=== PATIENT | female | born 1985 | race American Indian/Alaskan Native ===

== ENCOUNTER 2017-01-19 15:10 | Emergency (ER) | payer MEDICAID ==
[2017-01-19 15:58] LABS: Basophils % (Auto) 0.6 % (0.0-1.8); Eosinophils % (Auto) 1.3 % (0.0-4.3); Hematocrit 35.9 % (30.3-42.9); Hemoglobin 11.7 gm/dl (10.1-14.3); Mean Corpuscular HGB Conc 33 % (30-34); Mean Corpuscular Hemoglobin 28 pg (28-32); Mean Corpuscular Volume 86 fl (79-97); Platelet Count 233 K/mm3 (140-440); Red Blood Count 4.19 M/mm3 (3.65-5.03); Red Cell Distribution Width 14.5 % (13.2-15.2); White Blood Count 7.6 K/mm3 (4.5-11.0)
[2017-01-19 16:13] LABS: Alanine Aminotransferase 8 units/L (7-56); Albumin 3.9 g/dL (3.9-5); Albumin/Globulin Ratio 1.2 %; Alkaline Phosphatase 51 units/L (35-129); Anion Gap 19 mmol/L; BUN/Creatinine Ratio 13; Bilirubin,Total < 0.20 mg/dL (0.1-1.2); Blood Urea Nitrogen 8 mg/dL (7-17); Calcium 9.1 mg/dL (8.4-10.2); Carbon Dioxide 23 mmol/L (22-30); Glucose 87 mg/dL (65-100); Sodium 139 mmol/L (137-145); Total Protein 7.1 g/dL (6.3-8.2)
[2017-01-19 16:44] LABS: Bacteria,Urine 1+ /HPF (Negative); Bilirubin,Urine NEG (Negative); Blood,Urine NEG (Negative); Ketones,Urine NEG (Negative); Leukocyte Esterase,Urine LG (Negative); Mucus,Urine FEW /HPF; Nitrite,Urine NEG (Negative); Protein,Urine <15 mg/dL mg/dL (Negative); Urobilinogen,Urine < 2.0 mg/dL (<2.0)
--- NOTE | 2017-01-19 19:16 | Ultrasound Report ---
FINAL REPORT EXAM: US OB > = 14 WEEKS FETUS HISTORY: cramping and cramping TECHNIQUE: Limited obstetrical ultrasound PRIORS: None. FINDINGS: LMP: 09/15/2016 clinical Age: 18 w 0 d US Age (average) = 17 w 2D EFW (BPD,HC,AC,FL) = 186g +/-28 g (0 lb 7 oz +/-1 oz) LMP EDC 06/22/2017 US EDC 06/27/2017 CI 79.7 (range 74 to 83) HC/AC 1.21 (range 1.07 to 1.29) FL/BPD 66.5 FL/HC. 18.4 (range 13.6 to. 20.2) FL/AC 22.2 BPD 3.7 cm corresponding to estimated age 17 weeks 3 days HC 13.5 cm corresponding to estimated age 17 weeks 0 days AC 11.2 cm corresponding to estimated age 17 weeks 0 days FL 2.5 cm corresponding to estimated age 17 weeks 3 days Presentation: Breech Activity: Monitored Placental location: Anterior Placental grade: 0 Cardiac motion: 152 BPM using M-mode doppler Amniotic Fluid Volume: Adequate Cervical Length: 3.3 cm IMPRESSION: Single intrauterine viable with an approximate age of 17 weeks 2 days.
--- NOTE | 2017-01-20 01:22 | Emergency Department Report ---
ED HPI - General Chief complaint: OB/Uterine Contractions Stated complaint: PREG, BACK AND ABDOMINAL ,ITCHING Time Seen by Provider: 01/19/17 22:45 Source: patient Mode of arrival: Ambulatory Limitations: No Limitations - History of Present Illness Initial comments: 31YO FEMALE 18 WEEKS WITH LOWER BACK PAIN AND ABDOMINAL PAIN. SHE C/O SEVERE VAGINAL ITCHING WHICH SHE HAS HAD FOR 5 DAYS. LAST SEXUAL ACTIVITY 2 WEEKS AGO. MD Complaint: abdominal pain -: Gradual Location: abdomen Severity scale (0 -10): 4 Quality: cramping Consistency: constant Improves with: rest Worsens with: movement Associated symptoms: denies other symptoms Vaginal bleeding: none :: Yes Number of weeks : 18 OB History - Previous Pregnancies: no complications Pre- care: followed by OB - Related Data Previous Rx's Medication Instructions Recorded Last Taken Type Fluconazole [Diflucan TAB] 200 mg PO QDAY #1 tablet 01/20/17 Unknown Rx Allergies Allergy/AdvReac Type Severity Reaction Status Date / Time No Known Allergies Allergy Verified 01/19/17 15:18 ED Review of Systems ROS: Stated complaint: PREG, BACK AND ABDOMINAL ,ITCHING Other details as noted in HPI Constitutional: denies: chills, fever Eyes: denies: eye pain, eye discharge, vision change ENT: denies: ear pain, throat pain Respiratory: denies: cough, shortness of breath, wheezing Cardiovascular: denies: chest pain, palpitations Endocrine: no symptoms reported Gastrointestinal: denies: abdominal pain, nausea, vomiting, diarrhea Genitourinary: denies: urgency, dysuria, discharge Musculoskeletal: back pain. denies: joint swelling, arthralgia Skin: denies: rash, lesions Neurological: denies: headache, weakness, paresthesias Psychiatric: denies: anxiety, depression Hematological/Lymphatic: denies: easy bleeding, easy bruising ED Past Medical Hx - Past Medical History Previous Medical History?: Yes Additional medical history: Gestational diabetes and induced hypertension - Surgical History Past Surgical History?: Yes Additional Surgical History: Rt knee surgery; ACL reconstruction - Social History Smoking Status: Never Smoker Substance Use Type: None - Medications Home Medications: Home Medications Medication Instructions Recorded Confirmed Last Taken Type Fluconazole [Diflucan TAB] 200 mg PO QDAY #1 tablet 01/20/17 Unknown Rx ED Physical Exam - General Limitations: No Limitations General appearance: alert, in no apparent distress - Head Head exam: Present: atraumatic, normocephalic - Eye Eye exam: Present: normal appearance, EOMI - ENT ENT exam: Present: mucous membranes moist - Neck Neck exam: Present: normal inspection - Respiratory Respiratory exam: Present: normal lung sounds bilaterally. Absent: respiratory distress - Cardiovascular Cardiovascular Exam: Present: regular rate, normal rhythm. Absent: systolic murmur, diastolic murmur, rubs, gallop - GI/Abdominal GI/Abdominal exam: Present: soft, normal bowel sounds - Extremities Exam Extremities exam: Present: normal inspection - Back Exam Back exam: Present: normal inspection, full ROM, tenderness (ACROSS LUMBAR ) - Neurological Exam Neurological exam: Present: alert, oriented X3, CN II-XII intact - Psychiatric Psychiatric exam: Present: normal affect, normal mood - Skin Skin exam: Present: warm, dry, intact, normal color. Absent: rash ED Course Vital Signs 01/19/17 01/19/17 01/20/17 15:19 19:44 01:08 Temperature 97.9 F 98.4 F 98.7 F Pulse Rate 91 H 84 76 Respiratory 18 18 18 Rate Blood Pressure 114/72 120/82 Blood Pressure 111/67 [Left] O2 Sat by Pulse 99 98 100 Oximetry 01/20/17 01:11 Temperature Pulse Rate Respiratory 18 Rate Blood Pressure Blood Pressure [Left] O2 Sat by Pulse 100 Oximetry ED Medical Decision Making - Lab Data Result diagrams: 01/19/17 15:28 01/19/17 15:28 Critical care attestation.: If time is entered above; I have spent that time in minutes in the direct care of this critically ill patient, excluding procedure time. ED Disposition Clinical Impression: Broad ligament pain UTI (urinary tract infection) Qualifiers: Urinary tract infection type: acute cystitis Hematuria presence: without hematuria Qualified Code(s): N30.00 - Acute cystitis without hematuria Disposition: DC-01 TO HOME OR SELFCARE Is pt being admited?: No Does the pt Need Aspirin: No Condition: Stable Instructions: Urinary Tract Infection in Women (ED), Abdominal Pain in (ED), Vulvovaginal Candidiasis (ED) Additional Instructions: PLEASE CHECK IN MEDICAL RECORDS IN 4-5 DAYS FOR THE GONORRHEA AND CHLAMYDIA RESULTS. RETURN TO THE ER FOR ANY CONCERNS Prescriptions: Fluconazole [Diflucan TAB] 200 mg PO QDAY #1 tablet Referrals: PRIMARY CARE, [Primary Care Provider] - 3-5 Days Time of Disposition: 02:31
[2017-01-20 02:50] VITALS: BP 120/58
== END 2017-01-20 02:52 | disposition home or self-care (01) ==
LOC: ED 15:10
DX: O23.42 Unspecified infection of urinary tract in pregnancy, second trimester (principal); M54.5 Low back pain; Z3A.18 18 weeks gestation of pregnancy
CPT/HCPCS: 36415; 76805; 80053; 81001; 84702; 85025; 87210; 87591

== ENCOUNTER 2017-02-02 12:02 | Outpatient (CLI) | payer MEDICAID ==
[2017-02-02 13:03] VITALS: BP 111/54
[2017-02-02] MEDS ORDERED: LACTATED RINGERS 500 ML IV ONE (14:32)
== END 2017-02-02 14:47 | disposition home or self-care (01) ==
LOC: TRG 12:02
PROVIDERS: ATTEND Obstetrics & Gynecology
DX: O47.02 False labor before 37 completed weeks of gestation, second trimester (principal); Z3A.20 20 weeks gestation of pregnancy

== ENCOUNTER 2017-03-03 12:35 | Outpatient (CLI) | payer MEDICAID ==
[2017-03-03 12:52] VITALS: BP 118/67
[2017-03-03] MEDS ORDERED: LACTATED RINGERS 500 ML IV ONE (14:10)
--- NOTE | 2017-03-03 15:03 | Ultrasound Report ---
FINAL REPORT EXAM: US OB > = 14 WEEKS FETUS HISTORY: IUP at 24 wks, concern for rupture of membranes TECHNIQUE: Ultrasound evaluation of the gravid uterus PRIORS: 01/19/2017 FINDINGS: There is a single viable intrauterine with documented cardiac activity. Multiple ultrasound measurements are made to determine a composite gestational age. ratios are within normal limits. There is no evidence of placenta previa or abruption. The maternal cervix is closed. The quantity of visualized amniotic fluid appears grossly normal. No sonographic abnormality in the visualized portion of the anatomy. Heart rate: 156 beats per minute position: Breech Placental position: Anterior Maternal cervix length: 3.4cm Amniotic fluid index: 9.3cm Estimated weight: 669 g Growth percentile by ultrasound: 43 Ultrasound estimated gestational age: 24 weeks 0 days Ultrasound estimated delivery date: 06/23/2017 LMP estimated gestational age: 24 weeks 1 day 8 LMP estimated delivery date: 06/22/2017 IMPRESSION: Single viable intrauterine with the above parameters Amniotic fluid index within normal limits Breech presentation
== END 2017-03-03 15:00 | disposition home or self-care (01) ==
LOC: TRG 12:35
PROVIDERS: ATTEND Obstetrics & Gynecology
DX: O32.1XX0 Maternal care for breech presentation, not applicable or unspecified (principal); O47.02 False labor before 37 completed weeks of gestation, second trimester; Z3A.24 24 weeks gestation of pregnancy
CPT/HCPCS: 36415; 76805; 82731

== ENCOUNTER 2020-01-03 17:00 | Emergency (ER) | payer BC, OTHER ==
[2020-01-03 17:15] VITALS: BP 148/89
--- NOTE | 2020-01-03 17:32 | Emergency Department Report ---
Chief Complaint: Upper Respiratory Infection Stated Complaint: HEADACHE/DIFFICULTY BREATHING Time Seen by Provider: 01/03/20 17:29 - HPI History of Present Illness: Patient is a 34-year-old female presents emergency room with complaints of fatigue that began yesterday. She has associated diarrhea, postnasal drip, cough, nausea, generalized body aches. She states that occasionally she feels shortness of breath after frequent coughing but otherwise is not short of br eath. She denies any fever, vomiting, chest pain, abdominal pain. She is able to tolerate p.o. intake without difficulty. She denies any past medical history. No allergies to medications. She states her last menstrual cycle was 3 weeks ago and uses a NuvaRing as control. 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 Vitals are stable On exam: Non toxic appearing, no acute distress atraumatic, normocephalic normal appearance of the eyes, PERRL, EOMI, no periorbital edema or ecchymosis moist mucus membranes, normal oropharynx, normal TMs and canals bilaterally regular heart rate and rhythm, no gallops, no rubs, no murmurs breath sounds are clear bilaterally, no w/r/r, no stridor, no respiratory distr ess, no accessory muscle use A&O x4, no focal neuro deficit skin is warm, dry, intact Symptoms appear most consistent with viral syndrome Her vitals are stable, she has no fever, no hypoxia, no tachycardia No abnormality on physical examination as documented in chart Patient has had a contact with a COVID-19 positive person Discussed the possibility of COVID-19 with patient, discussed strict return precautions, discussed outpatient testing, discussed self quarantine advised pt Please increase your fluid intake over the next several days. May take Tylenol as needed for fever or body aches. May take [id number] cold symptom relief medication such as Mucinex or TheraFlu. Follow-up with a primary care doctor for reexamination. Return to emergency room immediately for any new or worsening symptoms including but not limited to difficulty breathing, shortness of breath, severe chest pain, unable to tolerate by mouth intake, etc. Please self quarantine for 10 days from the onset of your symptoms. Please do not go out in public. If you are around others at home please wear a mask. If you need to cough or sneeze please do so in a napkin and immediately throw it away and immediately wash your hands. Wash your hands frequently. Wipe everything down. Recommend for you to get COVID-19 testing, may have this done at primary care doctor, health department, [employer] thru testing centers. Medical screening examination performed and there is no threat to life or limb at this time - Exam Vital Signs: Vital Signs 01/03/20 17:09 Temperature 98.7 F Pulse Rate 99 H Respiratory 18 Rate Blood Pressure 148/89 O2 Sat by Pulse 99 Oximetry MSE screening note: Focused history and physical exam performed. ED Disposition for MSE Clinical Impression: Viral URI with cough, Exposure to COVID-19 virus Disposition: MED SCREENING EXAM-LEFT Is pt being admited?: No Does the pt Need Aspirin: No Condition: Stable Instructions: COVID-19, COVID-19: How to Protect Yourself and Others - CDC, Viral Respiratory Infection, Prevent the Spread of COVID-19 if You Are Sick - [facility] Additional Instructions: Please increase your fluid intake over the next several days. May take Tylenol as needed for fever or body aches. May take [id number]-wvxyjcr cold symptom relief medication such as Mucinex or TheraFlu. Follow-up with a primary care doctor for reexamination. Return to emergency room immediately for any new or worsening symptoms including but not limited to difficulty breathing, shortness of breath, severe chest pain, unable to tolerate by mouth intake, etc. Please self quarantine for 10 days from the onset of your symptoms. Please do not go out in public. If you are around others at home please wear a mask. If you need to cough or sneeze please do so in a napkin and immediately throw it away and immediately wash your hands. Wash your hands frequently. Wipe everything down. Recommend for you to get COVID-19 testing, may have this done at primary care doctor, health department, [employer] thru testing centers. Referrals: your, primary care doctor [Other] - 2-3 Days Forms: Work/School Release Form(ED) Time of Disposition: 17:31 Print Language: TURKMEN
== END 2020-01-03 17:42 | disposition left against medical advice (07) ==
LOC: ED 17:00
DX: J06.9 Acute upper respiratory infection, unspecified (principal); Z20.828 Contact with and (suspected) exposure to other viral communicable diseases; Z53.21 Procedure and treatment not carried out due to patient leaving prior to being seen by health care provider

== ENCOUNTER 2020-01-13 12:16 | Outpatient (CLI) | payer BC ==
[2020-01-13 13:22] LABS: Chol/HDL Ratio 2.55 %
== END 2020-01-13 12:17 | disposition home or self-care (01) ==
LOC: LAB 12:16
PROVIDERS: ATTEND Internal Medicine
DX: E78.5 Hyperlipidemia, unspecified (principal); E55.9 Vitamin D deficiency, unspecified
CPT/HCPCS: 36415; 80061; 82306; 82607

== ENCOUNTER 2020-01-30 11:13 | Emergency (ER) | payer BC ==
[2020-01-30 12:22] LABS: Basophils # (Auto) 0.1 K/mm3 (0.0-0.1); Basophils % (Auto) 0.5 % (0.0-1.8); Eosinophils # (Auto) 0.1 K/mm3 (0.0-0.4); Eosinophils % (Auto) 0.5 % (0.0-4.3); Hematocrit 39.9 % (30.3-42.9); Hemoglobin 13.1 gm/dl (10.1-14.3); Lymphocytes # (Auto) 1.7 K/mm3 (1.2-5.4); Lymphocytes % (Auto) 14.6 % (13.4-35.0); Mean Corpuscular HGB Conc 33 % (30-34); Mean Corpuscular Volume 86 fl (79-97); Monocytes # (Auto) 0.7 K/mm3 (0.0-0.8); Monocytes % (Auto) 5.8 % (0.0-7.3); Platelet Count 256 K/mm3 (140-440); Red Blood Count 4.65 M/mm3 (3.65-5.03); Red Cell Distribution Width 14.5 % (13.2-15.2)
[2020-01-30 12:45] LABS: Alanine Aminotransferase 19 units/L (7-56); Albumin 4.2 g/dL (3.9-5); Blood Urea Nitrogen 9 mg/dL (7-17); Calcium 9.5 mg/dL (8.4-10.2); Hemolysis Index 17
[2020-01-30 12:48] LABS: BUN/Creatinine Ratio 13; Bilirubin,Direct < 0.2 mg/dL (0-0.2)
[2020-01-30 12:49] LABS: Bilirubin,Urine NEG (Negative); Blood,Urine NEG (Negative); Color,Urine Yellow (Yellow); Protein,Urine <15 mg/dL mg/dL (Negative); Urobilinogen,Urine < 2.0 mg/dL (<2.0)
[2020-01-30] MEDS ORDERED: KETOROLAC 60 MG/2 ML INJ IM STA (15:09)
--- NOTE | 2020-01-30 16:26 | Cat Scan Report ---
CT ABDOMEN AND PELVIS WITH CONTRAST INDICATION / CLINICAL INFORMATION: Lower abdominal pain. TECHNIQUE: Axial CT images were obtained through the abdomen and pelvis after 100 cc Omnipaque [address] scans at this location are performed using CT dose reduction for ALARA by means of automated exposure control. COMPARISON: None available. FINDINGS: LOWER CHEST: No significant abnormality. LIVER: No significant abnormality. GALLBLADDER: No significant abnormality. BILE DUCTS: No significant abnormality. PANCREAS: No significant abnormality. SPLEEN: No significant abnormality. ADRENALS: No significant abnormality. RIGHT KIDNEY / URETER: No significant abnormality. LEFT KIDNEY / URETER: No significant abnormality. STOMACH / SMALL BOWEL: No significant abnormality. COLON: Mild diverticulosis is noted along the sigmoid colon with mild wall thickening and surrounding inflammation. No other significant abnormality. APPENDIX: Surgically absent. PERITONEUM: No free fluid. No free air. No fluid collection. LYMPH NODES: No significant adenopathy. AORTA / ARTERIES: No significant abnormality. IVC / VEINS: No significant abnormality. URINARY BLADDER: No significant abnormality. REPRODUCTIVE ORGANS: The right ovary is enlarged and contains low attenuation lesions measuring up to 2.9 x 1.9 cm. No other significant abnormality. ADDITIONAL FINDINGS: None. SKELETAL SYSTEM: No significant abnormality. IMPRESSION: 1. Uncomplicated acute sigmoid diverticulitis. 2. Nonspecific enlargement of the right ovary with nonspecific areas of internal low attenuation that may represent cysts/follicles. Please correlate with the clinical findings. If there is continued cl inical concern, a pelvic ultrasound may be helpful for further evaluation. Signer Name: Alan Pablo MD Signed: 01/30/2020 4:22 PM Workstation Name: [id number]
--- NOTE | 2020-01-30 16:42 | Emergency Department Report ---
ED Abdominal Pain HPI - General Chief Complaint: Abdominal Pain Stated Complaint: ABDOMINAL PAIN Time Seen by Provider: 01/30/20 14:51 Source: patient Mode of arrival: Ambulatory Limitations: No Limitations - History of Present Illness MD Complaint: abdominal pain Location: suprapubic Radiation: none Migration to: no migration Severity: mild, moderate Severity scale (0 -10): 8 Quality: aching, dull Consistency: constant Improves With: nothing Worsens With: nothing Associated Symptoms: denies: vomiting, diarrhea, constipation, hematochezia, hematuria, anorexia, syncope - Related Data Previous Rx's Medication Instructions Recorded Last Taken Type Fluconazole [Diflucan TAB] 200 mg PO QDAY #1 tablet 01/20/17 Unknown Rx Ciprofloxacin HCl [Ciprofloxacin 500 mg PO Q12HR #28 tab 01/30/20 Unknown Rx TAB] Hyoscyamine Subl [Levsin Sl 0.125 0.125 mg SL Q6HR PRN #20 tab 01/30/20 Unknown Rx TAB] Ketorolac [Toradol] 10 mg PO Q6H PRN #15 tablet 01/30/20 Unknown Rx metroNIDAZOLE [Flagyl] 500 mg PO Q12HR #28 tab 01/30/20 Unknown Rx Allergies Allergy/AdvReac Type Severity Reaction Status Date / Time No Known Allergies Allergy Verified 01/19/17 15:18 ED Review of Systems ROS: Stated complaint: ABDOMINAL PAIN Other details as noted in HPI Comment: All other systems reviewed and negative ED Past Medical Hx - Past Medical History Previous Medical History?: No Hx Hypertension: No Hx Diabetes: No Hx Deep Vein Thrombosis: No Hx Renal Disease: No Hx Sickle Cell Disease: No Hx Seizures: No Hx Asthma: No Hx HIV: No Additional medical history: Gestational diabetes and induced hypertension - Surgical History Past Surgical History?: Yes Additional Surgical History: Rt knee surgery; ACL reconstruction - Social History Smoking Status: Never Smoker Substance Use Type: None - Medications Home Medications: Home Medications Medication Instructions Recorded Confirmed Last Taken Type Fluconazole [Diflucan TAB] 200 mg PO QDAY #1 tablet 01/20/17 Unknown Rx Ciprofloxacin HCl [Ciprofloxacin 500 mg PO Q12HR #28 tab 01/30/20 Unknown Rx TAB] Hyoscyamine Subl [Levsin Sl 0.125 0.125 mg SL Q6HR PRN #20 tab 01/30/20 Unknown Rx TAB] Ketorolac [Toradol] 10 mg PO Q6H PRN #15 tablet 01/30/20 Unknown Rx metroNIDAZOLE [Flagyl] 500 mg PO Q12HR #28 tab 01/30/20 Unknown Rx ED Physical Exam - General Limitations: No Limitations General appearance: alert, in no apparent distress - Head Head exam: Present: atraumatic, normocephalic, normal inspection - Eye Eye exam: Present: normal appearance, PERRL. Absent: scleral icterus, conjunctival injection, periorbital swelling, periorbital tenderness Pupils: Present: normal accommodation - ENT ENT exam: Present: normal exam, normal orophraynx, mucous membranes moist, TM's normal bilaterally - Neck Neck exam: Present: normal inspection, full ROM - Respiratory Respiratory exam: Present: normal lung sounds bilaterally. Absent: respiratory distress, wheezes, rhonchi, chest wall tenderness, accessory muscle use, decreased breath sounds - Cardiovascular Cardiovascular Exam: Present: regular rate, normal rhythm. Absent: systolic murmur, diastolic murmur, rubs, gallop - GI/Abdominal GI/Abdominal exam: Present: soft, tenderness, normal bowel sounds. Absent: distended, guarding, hyperactive bowel sounds, hypoactive bowel sounds, organomegaly - Extremities Exam Extremities exam: Present: normal inspection, normal capillary refill - Back Exam Back exam: Present: normal inspection. Absent: CVA tenderness (R), CVA tenderness (L) - Neurological Exam Neurological exam: Present: alert, oriented X3, CN II-XII intact - Psychiatric Psychiatric exam: Present: normal affect, normal mood - Skin Skin exam: Present: warm, dry, intact, normal color. Absent: rash ED Course Vital Signs 01/30/20 01/30/20 11:37 15:18 Temperature 98.4 F Pulse Rate 97 H Respiratory 16 18 Rate Blood Pressure 127/92 O2 Sat by Pulse 100 Oximetry ED Medical Decision Making - Lab Data Result diagrams: 01/30/20 12:01 01/30/20 12:04 Critical care attestation.: If time is entered above; I have spent that time in minutes in the direct care of this critically ill patient, excluding procedure time. ED Disposition Clinical Impression: Diverticulitis, Ovarian cyst Disposition: - TO HOME OR SELFCARE Is pt being admited?: No Does the pt Need Aspirin: No Condition: Stable Instructions: Abdominal Pain (ED), Diverticulitis, Ovarian Cystectomy, Care After, Ovarian Cyst, [id number] Prescriptions: Ciprofloxacin HCl [Ciprofloxacin TAB] 500 mg PO Q12HR #28 tab metroNIDAZOLE [Flagyl] 500 mg PO Q12HR #28 tab Hyoscyamine Subl [Levsin Sl 0.125 TAB] 0.125 mg SL Q6HR PRN #20 tab PRN Reason: abdominal cramps and spasms Ketorolac [Toradol] 10 mg PO Q6H PRN #15 tablet PRN Reason: Pain Referrals: [facility] [Provider Group] - 3-5 Days PRIMARY CARE,MD [Primary Care Provider] - 3-5 Days [facility] [Provider Group] - 3-5 Days
[2020-01-30 17:28] VITALS: BP 138/80
== END 2020-01-30 17:27 | disposition home or self-care (01) ==
LOC: ED 11:13
DX: K57.92 Diverticulitis of intestine, part unspecified, without perforation or abscess without bleeding (principal); N83.209 Unspecified ovarian cyst, unspecified side; Z98.890 Other specified postprocedural states; Z79.899 Other long term (current) drug therapy
CPT/HCPCS: 36415; 74177; 80048; 80076; 81001; 84703; 85025; 96372; 99284; J1885; Q9967

== ENCOUNTER 2020-04-06 06:01 | Day surgery (SDC) | payer BC ==
[~2020-04-06 06:01] MED LIST: SODIUM CHLORIDE 0.9% 1000 ML 1,000 ML IV SCH
--- NOTE | 2020-04-06 07:57 | Anesthesia Day of Surgery ---
Anesthesia Day of Surgery - Day of Surgery Patient Examined: Yes Patient H&P Reviewed: Yes Patient is NPO: Yes
--- NOTE | 2020-04-06 07:57 | Anesthesia Consultation ---
Anesthesia Consult and Med Hx Date of service: 04/06/20 - Airway Anesthetic Teeth Evaluation: Good ROM Head & Neck: Adequate Mental/Hyoid Distance: Adequate Mallampati Class: Class II Intubation Access Assessment: Good - Pulmonary Exam CTA: Yes - Cardiac Exam Cardiac Exam: RRR - Pre-Operative Health Status ASA Pre-Surgery Classification: ASA2 Proposed Anesthetic Plan: MAC - Pulmonary Hx Asthma: No - Cardiovascular System Hx Hypertension: Yes - Central Nervous System Hx Seizures: No Hx Psychiatric Problems: No - Endocrine Hx Renal Disease: No Hx Hypothyroidism: No Hx Hyperthyroidism: No - Hematic Hx Anemia: No Hx Sickle Cell Disease: No - Other Systems Hx Alcohol Use: No
[2020-04-06] MEDS ORDERED: WATER FOR IRRIG STERILE 1,000 ML BOTTLE ONE (07:58)
[2020-04-06] MEDS ORDERED: WATER FOR IRRIG STERILE 250 ML BOTTLE IR ONE (07:58)
[2020-04-06] MEDS ORDERED: propofoL 200 MG/20 ML VIAL IV ONE ×2 (08:20→08:42)
--- NOTE | 2020-04-06 08:56 | Short Stay Summary ---
Short Stay Documentation Date of service: 04/06/20 Narrative H&P: Patient is a 34 yo aaf with h/o left sided diverticulitis last year, sx's now resolved, presents for colonoscopy. - History Past Medical History: other (no changes from clinic note) Social history: no significant social history - Allergies and Medications Current Medications: Allergies No Known Allergies Allergy (Verified 01/19/17 15:18) Home Medications Medication Instructions Recorded Confirmed Last Taken Type Fluconazole [Diflucan TAB] 200 mg PO QDAY #1 tablet 01/20/17 Unknown Rx Ciprofloxacin HCl [Ciprofloxacin 500 mg PO Q12HR #28 tab 01/30/20 Unknown Rx TAB] Hyoscyamine Subl [Levsin Sl 0.125 0.125 mg SL Q6HR PRN #20 tab 01/30/20 Unknown Rx TAB] Ketorolac [Toradol] 10 mg PO Q6H PRN #15 tablet 01/30/20 Unknown Rx metroNIDAZOLE [Flagyl] 500 mg PO Q12HR #28 tab 01/30/20 Unknown Rx Active Medications Sodium Chloride (Nacl 0.9% 1000 Ml) 1,000 mls @ 50 mls/hr IV DIRECT SCARLETT - Physical exam General appearance: no acute distress Lungs: Clear to auscultation Gastrointestinal: normal - Brief post op/procedure progress note Date of procedure: 04/06/20 Pre-op diagnosis: personal history of diverticulitis, abdominal pain Post-op diagnosis: other (colon polyps removed with cold biopsy forceps, few left sided tics) Procedure: colonoscopy with cold biopsy polypectomy Anesthesia: MAC Findings: Colon polyps x 2, diverticulosis, internal hemorrhoids Surgeon: BLAIR GRESHAM Estimated blood loss: minimal Pathology: list (Jar A - descending colon polyp, Jar B - rectal polyp) Specimen disposition: to lab Condition: stable - Disposition Condition at discharge: Good Disposition: DC-01 TO HOME OR SELFCARE Short Stay Discharge Plan Follow up with: PRIMARY CARE, [Primary Care Provider] - 7 Days
--- NOTE | 2020-04-06 09:02 | Post Anesthesia Evaluation ---
- Post Anesthesia Evaluation Patient Participated: Yes Airway Patent: Yes Stable Respiratory Function: Yes Nausea/Vomiting: No Temp > 96.8F: Yes Pain Manageable: Yes Adequeate Hydration: Yes Anesthesia Complications: No Block Receding Appropriately: Not Applicable Patient on Ventilator: No
--- NOTE | 2020-04-06 09:03 | Operative Report ---
Operative Report Operative Report: Colonoscopy Procedure Note with cold biopsy polypectomy Date of procedure: 04/06/2020 Endoscopist: Lang Ortega Pre-op diagnosis/indication: Abdominal pain, history of diverticulitis Post-op diagnosis: Diverticulosis, colon polyps x 2 removed Medications: MAC Estimated blood loss: Minimal Description of procedure: After consent was obtained, the patient was placed in the left lateral decubitus position. The olympus colonoscope was inserted into the rectum and advanced to the cecum without difficulty. The patient tolerated the procedure well. The views of the mucosa were good. The quality of prep was good. The patient's vital signs were monitored continuously throughout the procedure. Findings: There was an ~3 mm sessile polyp in the descending colon. The polyp was removed with cold biopsy forceps and retrieved. There was an ~2 mm sessile polyp in the rectum. The polyp was removed with cold biopsy forceps and retrieved. There were a few small diverticula in the left side of the colon. Internal hemorrhoids were visualized on retroflexion view. Impression: 1. Colon polyps x 2 removed with cold biopsy forceps 2. Left sided diverticulosis Recommendations: -high fiber diet daily -follow-up pathology -repeat colonoscopy in 3 to 5 years for surveillance based on pathology results
[2020-04-06 09:21] VITALS: BP 112/56
== END 2020-04-06 06:02 | disposition home or self-care (01) ==
LOC: GIO 06:01
PROVIDERS: ATTEND Internal Medicine Gastroenterology
DX: R10.9 Unspecified abdominal pain (principal); K57.30 Diverticulosis of large intestine without perforation or abscess without bleeding; K64.8 Other hemorrhoids; K63.5 Polyp of colon; K62.1 Rectal polyp; I10 Essential (primary) hypertension; Z90.49 Acquired absence of other specified parts of digestive tract; Z79.899 Other long term (current) drug therapy; Z83.3 Family history of diabetes mellitus; Z82.49 Family history of ischemic heart disease and other diseases of the circulatory system; Z87.19 Personal history of other diseases of the digestive system
CPT/HCPCS: 45380; 81025; 88305; J2704; J7030